=== PATIENT | male | born 1935 | race Caucasian/White ===

== ENCOUNTER 2017-02-23 12:54 | Inpatient (IN) | payer OTHER ==
--- NOTE | ~2017-02-23 | CN ---
Consultation Report [address] [address] NAME: ALEXIS HERNANDEZ : 34 STATUS : ADM IN PAT#: [id number] AGE: 81 ADM/REG DATE : 02/23/17 MR#: [id number] REPORT SERV DATE: 02/24/17 DICTATED BY: ANNIE MCKEON III DATE: 02/24/17 REPORT STATUS : Draft TRANSCRIBED BY: MODL DATE: 02/24/17 CONSULT DATE OF CONSULTATION: 02/24/2017 ATTENDING PHYSICIAN: Dr. Alexander. REASON FOR CONSULT: 1. Infection of left third toe. 2. Cellulitis of left foot and left lower extremity. 3. Recommendation regarding surgical management. HISTORY OF PRESENT ILLNESS: I am asked to see this 81-year-old male in the hospital today for the above reasons. The patient complains of swelling over his left third toe. He states he had an infection here about 7 or 8 weeks ago. He was treated with oral antibiotics with improvement. The toe was seen to be totally normal about 1 week ago. On this admission, the patient complains of swelling in the entire left great toe and left foot and left lower extremity. He presents to the emergency room and was found to have cellulitis of his left lower extremity associated with cellulitis of the left third toe. PAST HISTORY: 1. Hypertension. 2. Hyperlipidemia. 3. Diabetes mellitus. 4. Diabetic neuropathy of the lower extremities. 5. Coronary artery disease. 6. History of coronary artery bypass graft. 7. History of ischemic cardiomyopathy. 8. History of transient ischemic attack. 9. History of sick sinus syndrome. 10.Hyperlipidemia. 11.Sleep apnea. 12.Chronic kidney disease. 13.Chronic anemia. 14.Osteoarthritis. ALLERGIES: NONE. MEDICATIONS: Aspirin; Lipitor; Eliquis; folic acid; Lasix; lisinopril; metformin; and vitamins. SOCIAL HISTORY: The patient is . He lives with his daughter. He has no history of Consultation Report [address] [address] NAME: ALEXIS HERNANDEZ : 34 STATUS : ADM IN PAT#: [id number] AGE: 81 ADM/REG DATE : 02/23/17 MR#: [id number] REPORT SERV DATE: 02/24/17 DICTATED BY: ANNIE MCKEON III DATE: 02/24/17 REPORT STATUS : Draft TRANSCRIBED BY: MODL DATE: 02/24/17 tobacco or alcohol use currently. He is retired. FAMILY HISTORY: Positive for diabetes and peripheral vascular disease. REVIEW OF SYSTEMS: The patient's 14-point review of systems was otherwise unremarkable. PHYSICAL EXAMINATION: OBJECTIVE PHYSICAL EXAM: GENERAL: This is a large male, in no acute distress. He is alert and appropriate. VITAL SIGNS: Blood pressure 123/61, pulse 86, and temperature 95.8. HEENT: Unremarkable. NEUROLOGIC: Cranial nerves 2 through 12 are normal. LUNGS: Clear. CARDIAC: Normal. EXTREMITIES: The left lower extremity is remarkable for diffuse erythema of the left tibia extending to the left foot. There is moderate edema of the foot. The left 3rd toe is very swollen and erythematous with some dry eschar. There is no obvious open wounds and no fluctuance is noted. The patient has difficult to palpate posterior tibial and dorsal pedal pulses due to the edema of the foot and ankle but capillary refill is good in the toes bilaterally. LABORATORY DATA: White blood cell count is elevated at 13.6, hematocrit 31.4. Electrolytes are unremarkable except for creatinine of 1.49. Serum glucose is normal at 120. ASSESSMENT: 1. 81-year-old male with infection of the left 3rd toe, associated with cellulitis of the left foot and left lower extremity. 2. Diabetes mellitus. 3. Peripheral neuropathy of lower extremities related to diabetes. 4. Ischemic cardiomyopathy. 5. History of transient ischemic attack. 6. History of coronary artery disease. 7. Coronary artery bypass graft. 8. Sick sinus syndrome requiring Eliquis therapy. 9. Hypertension. 10.Sleep apnea. 11.Hyperlipidemia. 12.Chronic kidney disease. 13.Chronic anemia. PLAN: The patient is stable at this time with no evidence of need for acute surgical intervention. I agree with the parental antibiotics as ordered and imaging consistent with the MRI of the foot to rule out osteomyelitis. Consultation Report [address] [place] [address] NAME: ALEXIS HERNANDEZ : 34 STATUS : ADM IN [facility]#: [id number] AGE: 81 ADM/REG DATE : 02/23/17 MR#: [id number] REPORT SERV DATE: 02/24/17 DICTATED BY: ANNIE MCKEON III DATE: 02/24/17 REPORT STATUS : Draft TRANSCRIBED BY: MODChristian DATE: 02/24/17 It should be noted that the patient had noninvasive arterial studies of the lower extremities performed on 10/20/2016. This showed on the left side ankle-brachial index of 1.08. PLAN: The patient again has been started on parenteral antibiotics. MRI of the foot is pending. If the patient has evidence for osteomyelitis of the left 3rd toe, then possible consideration for amputation of the 3rd toe will be required. We will follow the patient with you. Thank you for this consult. RHJ/FROILAN Annie Mckeon III, M.D. / [id number] CC: Gina Preston MD
--- NOTE | ~2017-02-23 | DS ---
Discharge Summary [address] [place]. [address] NAME: ALEXIS HERNANDEZ : 34 STATUS : DIS IN PAT#: [id number] AGE: 81 ADM/REG DATE : 02/23/17 MR#: [id number] REPORT SERV DATE: 03/03/17 DICTATED BY: NICANOR ALEXANDER DATE: 03/02/17 REPORT STATUS : Draft TRANSCRIBED BY: MODL DATE: 03/02/17 ADMISSION DATE: 02/23/2017 DISCHARGE DATE: 03/02/2017 DISCHARGE DIAGNOSES: 1. Left third toe gangrene and osteomyelitis. 2. Diabetic foot infection. 3. Left lower extremity cellulitis, secondary to #1. 4. Sick sinus syndrome, with chronic atrial fibrillation, on Eliquis. 5. Ischemic cardiomyopathy, with chronic systolic congestive heart failure, ejection fraction of 40%. 6. Coronary artery disease, post coronary artery bypass grafting. 7. Hypertension. 8. Hyperlipoproteinemia. 9. Obstructive sleep apnea, controlled on CPAP. 10.Chronic kidney disease, 3. 11.Acute kidney injury, present on admission. 12.Chronic anemia. 13.Osteoarthritis, post bilateral total knee arthroplasty and right hip arthroplasty. 14.Dilated aortic root on echocardiography. 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 Pending at discharge: Quantitative immunoglobulins and free light chains. Outpatient followup needed. OPERATIONS AND PROCEDURES: On 02/28/2017, amputation of left third toe by Dr. Walters. HISTORY OF PRESENT ILLNESS: This is an 81-year-old white male taken in referral from Dr. Avila's office the day of admission, with a diabetic foot infection and left lower extremity cellulitis as described on admission history and physical examination. ADDITIONAL HISTORY: Per history and physical examination. PHYSICAL EXAMINATION: Per history and physical examination. ADMISSION LABORATORY: Per history and physical examination. HOSPITAL COURSE: He was admitted with a diabetic foot infection, with suspected left third toe osteomyelitis, and left lower extremity cellulitis all in the setting of the above- mentioned comorbidities. On admission, cultures of blood were obtained. He was started on Zosyn and vancomycin. Additional imaging was ordered and his home medications were continued. Plain left foot x-ray showed soft tissue infection of the distal left third toe. MRI of the left foot showed distal third phalanx osteomyelitis. There was a pocket of pus surrounding the destroyed bone consistent with tiny abscess. A chest x-ray showed mild pulmonary venous Discharge Summary [address] [place]. [address] NAME: ALEXIS HERNANDEZ : 34 STATUS : DIS IN PAT#: [id number] AGE: 81 ADM/REG DATE : 02/23/17 MR#: [id number] REPORT SERV DATE: 03/03/17 DICTATED BY: NICANOR ALEXANDER DATE: 03/02/17 REPORT STATUS : Draft TRANSCRIBED BY: FROILAN DATE: 03/02/17 congestion. Venous ultrasound imaging showed no evidence of left or right DVT. Segmental Dopplers have been done in September, which showed right and left ABIs within normal limits, and these were not repeated. Surgical consultation was obtained. He was seen by Dr. Sherwin Walters. Left third toe amputation was recommended. This was performed as described above. There were no perioperative complications. His antimicrobial therapy was continued postoperatively. By the time of discharge, his wound was clean. His cellulitic changes in his left foot and leg had largely resolved. Final pathology demonstrated gangrene of his left third toe, with osteomyelitis, with proximal viable bone. Blood cultures done on admission were no growth. His white blood cell count on admission was 13.9, and 8.5 at discharge. His hemoglobin was 11.2 on admission and 9.7, stable for two days at discharge. His blood sugar control in the hospital was generally excellent with blood sugars ranging in the low 100 to high 90s. He had issues with bradyarrhythmias in the past with Lopressor. He was started on low-dose carvedilol because of some ventricular response sustained over 100. He tolerated low-dose carvedilol well without documented bradycardia. On admission, his serum creatinine was 1.65. With the above-mentioned therapy, his creatinine fell to 1.28 on 03/01/2017, and 1.36 on 03/02/2017. He was thought to have an element of acute kidney injury. An anemia evaluation was done while hospitalized. This included an iron of 14, TIBC of 251, ferritin of 200, and B12 of 251. In addition, a TSH was 0.917. A serum protein electrophoresis was done which suggested a monoclonal protein. A serum immunofixation showed a biclonal IgM-kappa. Because of this, quantitative immunoglobulins were obtained, and are pending at the time of this discharge. Free light chains were obtained. This will require outpatient followup with consideration of bone marrow exam, skeletal survey, and Hematology evaluation. By 03/02/2017, it was felt that he had achieved a level of improvement and stability where he could be safely discharged home. He was seen by Physical Therapy. Home health care PT was recommended. He will have PT evaluation and treatment by home health care, in addition to medication reconciliation and home evaluation. Dr. Walters requested dressing changes daily with Xeroform gauze on his amputation site followed by a soft bulky dressing. He will need a rolling walker and a raised toilet seat which was provided at discharge. His office followup will be with Dr. Avila and Dr. Walters in two weeks or sooner if Discharge Summary [address] [address] NAME: ALEXIS HERNANDEZ : 34 STATUS : DIS IN PAT#: [id number] AGE: 81 ADM/REG DATE : 02/23/17 MR#: [id number] REPORT SERV DATE: 03/03/17 DICTATED BY: NICANOR ALEXANDER DATE: 03/02/17 REPORT STATUS : Draft TRANSCRIBED BY: FROILAN DATE: 03/02/17 needed. DISCHARGE MEDICATIONS: Pending outpatient followup: Eliquis 5 mg twice daily, aspirin 81 mg daily, Lipitor 20 mg daily, folic acid 1 mg daily, Coreg 3.125 mg twice daily, Lasix 10 mg daily, Prinivil 10 mg daily, multivitamin daily, Glucophage 500 mg twice daily, Coricidin twice daily, calcium, magnesium, and zinc twice daily, Tylenol 650 mg every 4 hours as needed for pain, Augmentin 875 twice daily after breakfast and supper for seven days. He was asked not to use nonsteroidal anti-inflammatory drugs with his chronic kidney disease. Discharge time greater than 30 minutes. DD/MODL Nicanor Alexander M.D. / [id number] CC: Gina Preston MD Richard Hunter Jennings III, M.D.
--- NOTE | ~2017-02-23 | HP ---
History And Physical [facility] [address] [place]. [address] NAME: ALEXIS HERNANDEZ : 34 STATUS : ADM IN PAT#: [id number] AGE: 81 ADM/REG DATE : 02/23/17 MR#: [id number] REPORT SERV DATE: 02/24/17 DICTATED BY: NICANOR ALEXANDER DATE: 02/23/17 REPORT STATUS : Draft TRANSCRIBED BY: MODChristian DATE: 02/23/17 DATE OF ADMISSION: 02/23/2017 CHIEF COMPLAINT: This is an 81-year-old white male, referred from Dr. Avila's office today with chief complaint of cellulitis. The history was obtained from Dr. Avila, the patient, and the patient's daughter who is present. The patient lives with his daughter. HISTORY OF PRESENT ILLNESS: The patient has been seeing Dr. Wiggins, a electroplater apprentice, for podiatric care. About seven weeks ago, he had apparently localized cellulitis of his left third toe that was treated with oral antimicrobial therapy with improvement. According to his daughter, the toe seemed to be normal last week. Yesterday, he was not his normal self. He was less interactive. She checked his vital signs and they were normal. His blood sugar was okay. He was shaky, imbalanced, and weak. He was noted to have a red left leg. He was taken to Dr. Avila today, where cellulitis was diagnosed and he was referred for admission. He has not had any itching or other rash. No headache. No change in vision. No earache, sore throat, nasal drainage, or cough. He has dyspnea on exertion, less than 20 feet. No chest pain. He has not had a change in his p.o. intake. Some trouble chewing because he is edentulous. No difficulty swallowing. No heartburn, nausea, vomiting, abdominal pain, constipation, diarrhea, or rectal bleeding. He has had no dysuria or hematuria. No focal joint pain. He has no history of cancer, thyroid disease, COPD, emphysema, bronchiectasis, or pulmonary fibrosis. He has no history of Parkinson disease. No previous history of BPH, voiding dysfunction, or renal stones. He does not have a systemic rheumatic disease and is not on any immunosuppressive medication. His other medical history does include: 1. Diabetes. 2. Neuropathy. 3. Ischemic cardiomyopathy with EF of 40% by echo in June 2016. 4. Coronary artery disease, post CABG, 1999. 5. History of TIAs. 6. Cognitive impairment, question vascular. 7. Sick sinus syndrome, with chronic atrial fibrillation with previous ablation. Currently on Eliquis. 8. Hypertension. 9. Hyperlipidemia. 10.Sleep apnea, on CPAP. 11.Chronic kidney disease 3. 12.Chronic anemia. 13.Osteoarthritis, post bilateral total knee arthroplasty and right hip arthroplasty. History And Physical [address] [address] NAME: ALEXIS HERNANDEZ : 34 STATUS : ADM IN [facility]#: [id number] AGE: 81 ADM/REG DATE : 02/23/17 MR#: [id number] REPORT SERV DATE: 02/24/17 DICTATED BY: NICANOR ALEXANDER DATE: 02/23/17 REPORT STATUS : Draft TRANSCRIBED BY: FROILAN DATE: 02/23/17 14.Dilated aortic root by last echocardiography in June of 2016. ALLERGIES OR INTOLERANCE: None. HOME MEDICATIONS: Aspirin 81 mg daily, Lipitor 20 mg daily, Eliquis 5 mg twice daily, folic acid 1 tablet daily, Lasix 20 mg daily, lisinopril 10 mg daily, metformin 500 mg twice daily, multivitamin daily, Coricidin as needed. SOCIAL HISTORY: . Lives with daughter as noted. Has a second daughter. Has been living with his current daughter for four years because of some forgetfulness. He does not require any assistive devices. Does use alcohol, but not daily. No tobacco use in 40 to 50 years. Retired conventional machinist and salesman. No daily weights. Tries to follow a diabetic diet. FAMILY HISTORY: Father with diabetes, peripheral vascular disease, age 84. Mother at 97. Five siblings. A brother with leukemia. A brother in an accident. No diabetes. PAST SURGICAL HISTORY: See above. REVIEW OF SYSTEMS: Complete, done with patient and daughter in room 6132 and negative except as noted above. PHYSICAL EXAMINATION: VITAL SIGNS: O2 saturation 97% on 2 L, blood pressure 116/67, temperature 96.5, respirations 20, pulse 115, and weight 131.995 kg. GENERAL: This is a stated age appearing white male, who is alert, conversant, and appropriate. SKIN: There is erythema over the anterior and medial and lateral right lower extremity below the knee extending to the foot. Left third toe is erythematous and edematous with some exudate. No other skin changes are noted. No petechiae or ecchymoses. NODES: No palpable axillary, cervical, or inguinal. HEENT: Atraumatic with symmetric facies. Lids, sclerae, and conjunctivae negative. No xanthelasma, scleral icterus, or conjunctival petechiae or injection. Pupils are equal, round, and reactive to light. Extraocular movements intact. No nystagmus. Hearing intact. External ears negative. Ear canals ceruminous, cannot see TMs. Nose negative. Anterior nares clear. Lips, gums, mucosa, soft palate, posterior pharynx, tongue negative. He has an upper plate. NECK: No visible JVD. No palpable mass, goiter, or tenderness. Trachea midline, nontender. LUNGS: Clear to auscultation. Normal respiratory effort. HEART: Irregular rhythm. No audible murmur, gallop, rub, or click. Pulses 1+ radial. Cannot feel femoral, popliteal, dorsalis pedis, or posterior tibial. ABDOMEN: Obese, mild tenderness in the left lower quadrant. Size limits the exam. Cannot feel liver, spleen, kidneys, or any masses or organs. EXTREMITIES: Upper extremities, no active synovitis, clubbing, or edema. Lower extremities, see skin above, otherwise negative except previous bilateral knee replacements. NEUROLOGIC: Mental status oriented. Cranial nerves II through XII normal. Deep tendon reflexes absent lower extremities, 2+ brachioradialis left, no brachioradialis right. History And Physical [address] [address] NAME: ALEXIS HERNANDEZ : 34 STATUS : ADM IN PAT#: [id number] AGE: 81 ADM/REG DATE : 02/23/17 MR#: [id number] REPORT SERV DATE: 02/24/17 DICTATED BY: NICANOR ALEXANDER DATE: 02/23/17 REPORT STATUS : Draft TRANSCRIBED BY: FROILAN DATE: 02/23/17 Sensory, diminished temperature, lower extremities. Strength, symmetric upper and lower extremities, proximal and distal. PSYCHIATRIC: Appropriate mood and affect. DATA: Sodium 137, potassium 4.5, chloride 103, CO2 of 26, BUN 28, creatinine 1.65, glucose 125, calcium 9.3. Total protein 7, albumin 3.1, globulin is 3.9, total bilirubin is 1, alkaline phosphatase 88, ALT 13, AST 10. Iron 14, TIBC 251, ferritin 200. B12 of 251. TSH 0.917. C-reactive protein 158. BNP 212.5. White count 13.9, hemoglobin 11.2, platelets 207,000. Blood sugar 121. Urinalysis is pending. Chest x-ray: Increased heart size. No infiltrate or edema seen. EKG is pending. ASSESSMENT: This is an 81-year-old white male with: 1. Diabetic foot infection. Left third toe osteomyelitis, suspected question. Also forefoot infection. 2. Left lower extremity cellulitis. 3. Diabetes. 4. Neuropathy. 5. Ischemic cardiomyopathy with ejection fraction of 40% by echo in 06/2016. 6. Coronary artery disease, post coronary artery bypass graft in 1999. 7. Transient ischemic attack history. 8. Cognitive impairment. Question vascular. 9. Sick sinus syndrome, with chronic atrial fibrillation post ablation, on Eliquis. 10.Hypertension. 11.Hyperlipidemia. 12.Sleep apnea, on CPAP. 13.Chronic kidney disease 3. 14.Chronic anemia. 15.Osteoarthritis with bilateral total knee arthroplasties and right hip arthroplasty. 16.Dilated aortic root on 06/2016 echo. PLAN: Cultures of blood and urine. Begin Zosyn and vancomycin. Get MRI, left foot. Surgical/Wound consultation. Continue home medications. Insulin correction scale if needed. Medications for pain and nausea if needed. Further diagnostic and therapeutic considerations pending above. DD/MODL Nicanor Alexander M.D. / [id number] History And Physical [address] [address] NAME: ALEXIS HERNANDEZ : 34 STATUS : ADM IN [facility]#: [id number] AGE: 81 ADM/REG DATE : 02/23/17 MR#: [id number] REPORT SERV DATE: 02/24/17 DICTATED BY: NICANOR ALEXANDER DATE: 02/23/17 REPORT STATUS : Draft TRANSCRIBED BY: FROILAN DATE: 02/23/17 CC: Gina Preston MD
--- NOTE | ~2017-02-23 | OP ---
Record Of Operation [facility] [address] [place]. [address] NAME: ALEXIS HERNANDEZ : 34 STATUS : ADM IN PAT#: [id number] AGE: 81 ADM/REG DATE : 02/23/17 MR#: [id number] REPORT SERV DATE: 03/01/17 DICTATED BY: ANNIE MCKEON III DATE: 03/01/17 REPORT STATUS : Draft TRANSCRIBED BY: MODL DATE: 03/01/17 DATE OF PROCEDURE: 02/28/2017 PREOPERATIVE DIAGNOSES: Osteomyelitis of left third toe associated with abscess in the left third toe, cellulitis of the foot, diabetes mellitus, and diabetic neuropathy. POSTOPERATIVE DIAGNOSES: Osteomyelitis of left third toe associated with abscess in the left third toe, cellulitis of the foot, diabetes mellitus, and diabetic neuropathy. PROCEDURE: Amputation of the left third toe. SURGEON: Annie Mckeon M.D. ANESTHESIA: General with intubation. COMPLICATIONS: None. ESTIMATED BLOOD LOSS: Less than 5 mL. SPECIMENS: Left third toe. DRAINS: None. LAP AND SPONGE COUNT: Correct x3. BRIEF HISTORY: This 81-year-old male, with history of diabetes and diabetic neuropathy, was admitted with an infection of the left third toe, and severe cellulitis of the left foot and left lower extremity. His workup showed evidence for osteomyelitis and a probable abscess of the left third toe. This was the second time this infection had occurred. It was felt that the cellulitis of the entire lower extremity originated from this left third toe infection and osteomyelitis. It was felt that amputation of the left third toe therefore was indicated. This procedure, the risks, benefits, and alternatives, including but not limited to the risk for bleeding, infection, wound failure, wound dehiscence, possible need for further surgery, continued infection in the extremity requiring further surgery, and unforeseen complications including deep venous thrombosis, pulmonary embolus, myocardial infarction, stroke, and pneumonia and were fully and completely explained to the patient and the family prior to the surgery. Their questions were answered. They understood the risks and agreed to the surgery as planned. DESCRIPTION OF PROCEDURE: After being properly identified and after discussing the risks and benefits of the surgery with the patient and family again in the preoperative area, he was taken to the operating room, placed in the supine position on the operating room table. General anesthesia was administered. He was intubated without difficulty. The left foot was prepped and draped sterilely in the usual fashion. After an appropriate "time-out" per [employer] standards, an incision was made around the proximal aspect of the left third toe, proximal to the area of infection and skin necrosis, and where there was viable skin. The Record Of Operation [facility] [address] [place]. [address] NAME: ALEXIS HERNANDEZ : 34 STATUS : ADM IN PAT#: [id number] AGE: 81 ADM/REG DATE : 02/23/17 MR#: [id number] REPORT SERV DATE: 03/01/17 DICTATED BY: ANNIE MCKEON III DATE: 03/01/17 REPORT STATUS : Draft TRANSCRIBED BY: FROILAN DATE: 03/01/17 incision was continued through the subcutaneous tissue. Hemostasis was controlled with the cautery. The incision was continued through the tendons and vessels. The incision was continued down to the bone. An elevator was used to elevate the periosteum off the bone to the metatarsophalangeal joint. The bone was amputated at this joint using a bone cutter. The entire toe was thus removed. The skin edges were freshened. The wound was irrigated copiously with saline. There was extensive edema in the area, and the erythema extended to the skin edges. We resected back to viable skin. Hemostasis was assured. The skin edges were then reapproximated with interrupted 3-0 Prolene sutures. Dressings were applied, and the orthopedic shoe was applied. Anesthesia was reversed, and the patient was taken to the recovery room in stable condition. He tolerated the procedure well. His family was informed the results of the surgery. The patient will remain in the hospital for postoperative care. DEVIN/FROILAN Annie Mckeon III, M.D. / [id number] CC: Gina Preston MD
--- NOTE | ~2017-02-23 | CN ---
Consultation Report [facility] [address] [place]. [address] NAME: ALEXIS MCMILLAN : 33 STATUS : ADM IN [facility]#: [id number] AGE: 81 ADM/REG DATE : 02/23/17 MR#: [id number] REPORT SERV DATE: 02/25/17 DICTATED BY: ANNIE MCKEON III DATE: 02/25/17 REPORT STATUS : Draft TRANSCRIBED BY: MODChristian DATE: 02/25/17 DATE OF CONSULTATION: 02/25/2017 ADDENDUM: Mr. Mcmillan's cellulitis of the left lower extremity is improving. His left toe remains very swollen with an eschar and fluctuance consistent with an abscess distally. 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 Based on this, I feel amputation of the left 3rd toe is indicated. The patient is currently on Eliquis, and we will stop this and plan the surgery for Tuesday which would be amputation of the left 3rd toe at the base of the toe. This procedure, the risks, benefits, alternatives, including not limited to the risk for bleeding, infection, wound failure, wound dehiscence requiring prolonged wound care or even further amputation and unforeseen complications including deep venous thrombosis, pulmonary embolus, myocardial infarction, stroke, pneumonia, and , have been explained the patient prior to surgery. The possibility of nonhealing wound requiring further surgery or prolonged wound care has been explained. The patient's questions have been answered. He understands the risks and agrees to surgery as planned. DEVIN/FROILAN Annie Mckeon III, M.D. / [id number] CC: Gina Preston MD
[~2017-02-23 12:54] MED LIST: ALKA-SELTZER PO; ASAB PO; FISH-EPA1000 MG PO; FOLIC PO; GLUCPH PO; JANTOVEN3 MG PO; JANTOVEN4 MG PO; L20 PO; LIPITOR10 PO; MCZ25 PO; PLAVIX PO; TOPXL100 PO; TOPXL25 PO; VIT B 1; VIT B 12; VITAMIN B-121000 MC1 PO; VITAMIN B-121000 MC1 SL; VITAMIN B-1500 MG PO
[2017-02-23 17:14] LABS: BASOPHILS 0.2 %; BASOPHILS ABSOLUTE 0.03 10/3/uL (0.0-0.16); EOSINOPHILS 0 %; HEMOGLOBIN 11.2 g/dL (13.6-17.8); IMMATURE GRANULOCYTES 0.3 %; IMMATURE GRANULOCYTES ABSOLUTE 0.04 10/3/uL (0.0-0.11); LYMPHOCYTES 8.1 %; LYMPHOCYTES ABSOLUTE 1.13 10/3/uL (0.67-4.30); MEAN CORPUS HGB CONC 33.2 g/dL (32.0-36.0); MEAN CORPUSCULAR HEMOGLOB 31.5 pg (26.0-34.0); MEAN CORPUSCULAR VOLUME 94.7 fL (80-100); MONOCYTES 11.4 %; MONOCYTES ABSOLUTE 1.58 10/3/uL (0.21-1.20); NEUTROPHILS ABSOLUTE 11.14 10/3/uL (2.02-8.40); RED CELL COUNT 3.56 10/6/uL (4.7-6.1); WHITE BLOOD CELLS 13.9 10/3/uL (4.5-10.5)
[2017-02-23 17:15] LABS: HEMATOCRIT 33.7 % (40.0-51.0); MANUAL DIFF NO %; PLATELET COUNT 207 10/3/uL (150-400)
[2017-02-23 17:47] LABS: T PROTEIN (ELECT)(NOT OR 6.4 G/DL (6.0-8.5)
[2017-02-23 17:54] LABS: ALBUMIN 3.1 G/DL (3.5-5.0); BUN (BLOOD UREA NITROGEN) 28 MG/DL (6-23); CALCIUM, SERUM 9.3 MG/DL (8.5-10.4); CHLORIDE, SERUM 103 MMOL/L (96-112); CO2 (CARBON DIOXIDE) 26 MMOL/L (24-34); CREATININE 1.65 MG/DL (0.70-1.30); FERRITIN 200 NG/ML (26-388); GFR AFRICAN AMERICAN 44 ML/MIN (>=60); GFR NON AFRICAN AMERICAN 38 ML/MIN (>=60); GLUCOSE, SERUM 125 MG/DL (60-99); IRON BINDING CAPACITY 251 MCG/DL (250-450); IRON, SERUM 14 MCG/DL (35-150); POTASSIUM, SERUM 4.5 MMOL/L (3.5-5.3); SGOT(AST) 10 U/L (5-40); SGPT(ALT) 13 U/L (5-65); SODIUM, SERUM 137 MMOL/L (135-148); ULTRASENSITIVE TSH 0.917 MCIU/ML (0.358-3.740)
[2017-02-23 17:57] LABS: A/G RATIO 0.8 (0.7-1.9); ALKALINE PHOSPHATASE 88 U/L (45-117); GLOBULIN 3.9 G/DL (2.5-4.1)
[2017-02-23 18:18] LABS: SED RATE 69 MM/HR (0-15)
[2017-02-23] MEDS ORDERED: LIPITOR20 PO (18:40)
[2017-02-23] MEDS ORDERED: HALF81 PO (18:40)
[2017-02-23] MEDS ORDERED: L20 PO (18:41)
[2017-02-23] MEDS ORDERED: ELIQUIS 5 MG TAB5 MG PO (18:41)
[2017-02-23] MEDS ORDERED: FOLIC PO (18:41)
[2017-02-23] MEDS ORDERED: PRIN10 PO (18:42)
[2017-02-23] MEDS ORDERED: GLUCPH PO (18:42)
[2017-02-23] MEDS ORDERED: MULTIVITAMI1 PO (18:43)
[2017-02-23] MEDS ORDERED: CORICIDI3 PO (18:44)
[2017-02-23] MEDS ORDERED: ADVIL PO (18:45)
[2017-02-23] MEDS ORDERED: CALCIUM PO (18:45)
[2017-02-23] MEDS ORDERED: ZINC PO (18:45)
[2017-02-23] MEDS ORDERED: MAGNES PO (18:45)
[2017-02-24 05:52] LABS: BUN (BLOOD UREA NITROGEN) 28 MG/DL (6-23); CALCIUM, SERUM 9.1 MG/DL (8.5-10.4); CHLORIDE, SERUM 103 MMOL/L (96-112); CO2 (CARBON DIOXIDE) 24 MMOL/L (24-34); CREATININE 1.49 MG/DL (0.70-1.30); GFR AFRICAN AMERICAN 50 ML/MIN (>=60); GFR NON AFRICAN AMERICAN 43 ML/MIN (>=60); GLUCOSE, SERUM 120 MG/DL (60-99); POTASSIUM, SERUM 4.6 MMOL/L (3.5-5.3); SODIUM, SERUM 136 MMOL/L (135-148)
[2017-02-24 05:54] LABS: BASOPHILS 0.2 %; BASOPHILS ABSOLUTE 0.03 10/3/uL (0.0-0.16); EOSINOPHILS 0.5 %; EOSINOPHILS ABSOLUTE 0.07 10/3/uL (0.0-0.53); HEMATOCRIT 31.4 % (40.0-51.0); HEMOGLOBIN 10.6 g/dL (13.6-17.8); IMMATURE GRANULOCYTES 0.2 %; IMMATURE GRANULOCYTES ABSOLUTE 0.03 10/3/uL (0.0-0.11); LYMPHOCYTES 9.3 %; LYMPHOCYTES ABSOLUTE 1.26 10/3/uL (0.67-4.30); MANUAL DIFF NO %; MEAN CORPUS HGB CONC 33.8 g/dL (32.0-36.0); MEAN CORPUSCULAR HEMOGLOB 31.3 pg (26.0-34.0); MEAN CORPUSCULAR VOLUME 92.6 fL (80-100); MEAN PLATELET VOLUME 8.8 fL (9.2-13.0); MONOCYTES 8.1 %; NEUTROPHILS 81.7 %; NEUTROPHILS ABSOLUTE 11.11 10/3/uL (2.02-8.40); PLATELET COUNT 176 10/3/uL (150-400); RBC DISTRIBUTION WIDTH 15.1 % (12.0-16.0); RED CELL COUNT 3.39 10/6/uL (4.7-6.1); WHITE BLOOD CELLS 13.6 10/3/uL (4.5-10.5)
[2017-02-24 12:12] LABS: A/G 1.19 RATIO (0.9-2.10); ALB RELATIVE % 54.4 % (60.0-89.0); ALBUMIN (ELECTRO) 3.48 GM/DL (3.2-5.5); ALPHA 1 RELAT % (NOT ORD) 4.7 % (1.0-4.0); ALPHA 2 (ELECTRO) 0.84 GM/DL (0.5-1.10); ALPHA 2 RELAT % 13.1 % (4.5-26.0); BETA GLOBULIN (SPE) 0.68 GM/DL (0.60-1.30); BETA RELATIVE % 10.6 % (9.0-22.0); GAMMA RELAT % 17.2 % (6.0-22.0)
[2017-02-25 05:42] LABS: BASOPHILS 0.2 %; BASOPHILS ABSOLUTE 0.02 10/3/uL (0.0-0.16); EOSINOPHILS 1.2 %; EOSINOPHILS ABSOLUTE 0.13 10/3/uL (0.0-0.53); HEMATOCRIT 30.4 % (40.0-51.0); HEMOGLOBIN 10.4 g/dL (13.6-17.8); IMMATURE GRANULOCYTES 0.2 %; IMMATURE GRANULOCYTES ABSOLUTE 0.02 10/3/uL (0.0-0.11); LYMPHOCYTES 7.7 %; LYMPHOCYTES ABSOLUTE 0.84 10/3/uL (0.67-4.30); MEAN CORPUS HGB CONC 34.2 g/dL (32.0-36.0); MEAN CORPUSCULAR HEMOGLOB 31.3 pg (26.0-34.0); MEAN CORPUSCULAR VOLUME 91.6 fL (80-100); MEAN PLATELET VOLUME 8.7 fL (9.2-13.0); MONOCYTES 12.2 %; MONOCYTES ABSOLUTE 1.34 10/3/uL (0.21-1.20); NEUTROPHILS 78.5 %; PLATELET COUNT 177 10/3/uL (150-400); RBC DISTRIBUTION WIDTH 14.9 % (12.0-16.0); RED CELL COUNT 3.32 10/6/uL (4.7-6.1)
[2017-02-25 05:46] LABS: MANUAL DIFF NO %
[2017-02-25 05:55] LABS: BUN (BLOOD UREA NITROGEN) 25 MG/DL (6-23); CALCIUM, SERUM 8.6 MG/DL (8.5-10.4); CHLORIDE, SERUM 104 MMOL/L (96-112); CO2 (CARBON DIOXIDE) 22 MMOL/L (24-34); CREATININE 1.41 MG/DL (0.70-1.30); GFR AFRICAN AMERICAN 53 ML/MIN (>=60); GFR NON AFRICAN AMERICAN 46 ML/MIN (>=60); GLUCOSE, SERUM 115 MG/DL (60-99); POTASSIUM, SERUM 4.4 MMOL/L (3.5-5.3); SODIUM, SERUM 136 MMOL/L (135-148)
[2017-02-26 05:41] LABS: BASOPHILS 0.4 %; BASOPHILS ABSOLUTE 0.04 10/3/uL (0.0-0.16); EOSINOPHILS 3.4 %; EOSINOPHILS ABSOLUTE 0.33 10/3/uL (0.0-0.53); HEMATOCRIT 31.2 % (40.0-51.0); HEMOGLOBIN 10.6 g/dL (13.6-17.8); IMMATURE GRANULOCYTES 0.5 %; IMMATURE GRANULOCYTES ABSOLUTE 0.05 10/3/uL (0.0-0.11); LYMPHOCYTES 8.7 %; LYMPHOCYTES ABSOLUTE 0.84 10/3/uL (0.67-4.30); MEAN CORPUSCULAR HEMOGLOB 31.5 pg (26.0-34.0); MEAN CORPUSCULAR VOLUME 92.6 fL (80-100); MEAN PLATELET VOLUME 8.9 fL (9.2-13.0); MONOCYTES 11.4 %; NEUTROPHILS 75.6 %; NEUTROPHILS ABSOLUTE 7.29 10/3/uL (2.02-8.40); PLATELET COUNT 197 10/3/uL (150-400); RBC DISTRIBUTION WIDTH 14.6 % (12.0-16.0); RED CELL COUNT 3.37 10/6/uL (4.7-6.1); WHITE BLOOD CELLS 9.7 10/3/uL (4.5-10.5)
[2017-02-26 05:42] LABS: MANUAL DIFF NO %
[2017-02-26 05:49] LABS: BUN (BLOOD UREA NITROGEN) 28 MG/DL (6-23); CALCIUM, SERUM 8.8 MG/DL (8.5-10.4); CHLORIDE, SERUM 104 MMOL/L (96-112); CO2 (CARBON DIOXIDE) 22 MMOL/L (24-34); CREATININE 1.39 MG/DL (0.70-1.30); GFR AFRICAN AMERICAN 54 ML/MIN (>=60); GFR NON AFRICAN AMERICAN 47 ML/MIN (>=60); GLUCOSE, SERUM 111 MG/DL (60-99); POTASSIUM, SERUM 4.3 MMOL/L (3.5-5.3); SODIUM, SERUM 135 MMOL/L (135-148)
[2017-02-28 06:04] LABS: BASOPHILS 0.5 %; BASOPHILS ABSOLUTE 0.05 10/3/uL (0.0-0.16); EOSINOPHILS 3.3 %; EOSINOPHILS ABSOLUTE 0.34 10/3/uL (0.0-0.53); HEMATOCRIT 30.9 % (40.0-51.0); HEMOGLOBIN 10.3 g/dL (13.6-17.8); IMMATURE GRANULOCYTES 0.9 %; IMMATURE GRANULOCYTES ABSOLUTE 0.09 10/3/uL (0.0-0.11); LYMPHOCYTES 9.7 %; LYMPHOCYTES ABSOLUTE 0.99 10/3/uL (0.67-4.30); MEAN CORPUS HGB CONC 33.3 g/dL (32.0-36.0); MEAN CORPUSCULAR HEMOGLOB 30.9 pg (26.0-34.0); MEAN CORPUSCULAR VOLUME 92.8 fL (80-100); MEAN PLATELET VOLUME 8.8 fL (9.2-13.0); MONOCYTES 8.6 %; MONOCYTES ABSOLUTE 0.88 10/3/uL (0.21-1.20); NEUTROPHILS ABSOLUTE 7.87 10/3/uL (2.02-8.40); PLATELET COUNT 215 10/3/uL (150-400); RBC DISTRIBUTION WIDTH 14.9 % (12.0-16.0); RED CELL COUNT 3.33 10/6/uL (4.7-6.1); WHITE BLOOD CELLS 10.2 10/3/uL (4.5-10.5)
[2017-02-28 06:07] LABS: MANUAL DIFF NO %
[2017-02-28 06:22] LABS: BUN (BLOOD UREA NITROGEN) 20 MG/DL (6-23); CALCIUM, SERUM 9.2 MG/DL (8.5-10.4); CHLORIDE, SERUM 106 MMOL/L (96-112); CO2 (CARBON DIOXIDE) 23 MMOL/L (24-34); CREATININE 1.34 MG/DL (0.70-1.30); GFR AFRICAN AMERICAN 57 ML/MIN (>=60); GFR NON AFRICAN AMERICAN 49 ML/MIN (>=60); GLUCOSE, SERUM 115 MG/DL (60-99); POTASSIUM, SERUM 4.7 MMOL/L (3.5-5.3); SODIUM, SERUM 137 MMOL/L (135-148)
[2017-03-01 06:52] LABS: BASOPHILS 0.5 %; BASOPHILS ABSOLUTE 0.04 10/3/uL (0.0-0.16); EOSINOPHILS 3.3 %; EOSINOPHILS ABSOLUTE 0.28 10/3/uL (0.0-0.53); HEMATOCRIT 29.4 % (40.0-51.0); HEMOGLOBIN 9.7 g/dL (13.6-17.8); IMMATURE GRANULOCYTES 1.2 %; LYMPHOCYTES 11.4 %; LYMPHOCYTES ABSOLUTE 0.95 10/3/uL (0.67-4.30); MEAN CORPUSCULAR HEMOGLOB 31.2 pg (26.0-34.0); MEAN CORPUSCULAR VOLUME 94.5 fL (80-100); MEAN PLATELET VOLUME 8.7 fL (9.2-13.0); MONOCYTES 7.3 %; MONOCYTES ABSOLUTE 0.61 10/3/uL (0.21-1.20); NEUTROPHILS 76.3 %; NEUTROPHILS ABSOLUTE 6.39 10/3/uL (2.02-8.40); PLATELET COUNT 225 10/3/uL (150-400); RBC DISTRIBUTION WIDTH 15.1 % (12.0-16.0); RED CELL COUNT 3.11 10/6/uL (4.7-6.1); WHITE BLOOD CELLS 8.4 10/3/uL (4.5-10.5)
[2017-03-01 07:03] LABS: BUN (BLOOD UREA NITROGEN) 19 MG/DL (6-23); CALCIUM, SERUM 8.9 MG/DL (8.5-10.4); CHLORIDE, SERUM 107 MMOL/L (96-112); CO2 (CARBON DIOXIDE) 26 MMOL/L (24-34); CREATININE 1.28 MG/DL (0.70-1.30); GFR AFRICAN AMERICAN 60 ML/MIN (>=60); GFR NON AFRICAN AMERICAN 52 ML/MIN (>=60); GLUCOSE, SERUM 122 MG/DL (60-99); POTASSIUM, SERUM 4.5 MMOL/L (3.5-5.3); SODIUM, SERUM 139 MMOL/L (135-148)
[2017-03-01 07:05] LABS: MANUAL DIFF NO %
[2017-03-02 06:04] LABS: BUN (BLOOD UREA NITROGEN) 16 MG/DL (6-23); CALCIUM, SERUM 9.1 MG/DL (8.5-10.4); CHLORIDE, SERUM 106 MMOL/L (96-112); CO2 (CARBON DIOXIDE) 23 MMOL/L (24-34); CREATININE 1.36 MG/DL (0.70-1.30); GFR AFRICAN AMERICAN 56 ML/MIN (>=60); GFR NON AFRICAN AMERICAN 48 ML/MIN (>=60); GLUCOSE, SERUM 123 MG/DL (60-99); POTASSIUM, SERUM 4.7 MMOL/L (3.5-5.3); SODIUM, SERUM 138 MMOL/L (135-148)
[2017-03-02 06:49] LABS: BASOPHILS 0.4 %; BASOPHILS ABSOLUTE 0.03 10/3/uL (0.0-0.16); EOSINOPHILS 3.4 %; EOSINOPHILS ABSOLUTE 0.29 10/3/uL (0.0-0.53); HEMATOCRIT 29.6 % (40.0-51.0); HEMOGLOBIN 9.7 g/dL (13.6-17.8); IMMATURE GRANULOCYTES 0.9 %; IMMATURE GRANULOCYTES ABSOLUTE 0.08 10/3/uL (0.0-0.11); LYMPHOCYTES 12.9 %; MEAN CORPUS HGB CONC 32.8 g/dL (32.0-36.0); MEAN CORPUSCULAR HEMOGLOB 30.7 pg (26.0-34.0); MEAN CORPUSCULAR VOLUME 93.7 fL (80-100); MEAN PLATELET VOLUME 9.1 fL (9.2-13.0); MONOCYTES 7.2 %; MONOCYTES ABSOLUTE 0.61 10/3/uL (0.21-1.20); NEUTROPHILS 75.2 %; NEUTROPHILS ABSOLUTE 6.39 10/3/uL (2.02-8.40); PLATELET COUNT 249 10/3/uL (150-400); RBC DISTRIBUTION WIDTH 15.2 % (12.0-16.0); RED CELL COUNT 3.16 10/6/uL (4.7-6.1); WHITE BLOOD CELLS 8.5 10/3/uL (4.5-10.5)
[2017-03-02 06:52] LABS: MANUAL DIFF NO %
[2017-03-02 14:07] LABS: IMMUNOGLOBULIN A 200 MG/DL (70-420); IMMUNOGLOBULIN G 317 MG/DL (673-1464); IMMUNOGLOBULIN M 78 MG/DL (30-270)
[2017-03-02] MEDS ORDERED: COREG3 PO (16:07)
[2017-03-02] MEDS ORDERED: AUG875 PO (16:09)
[2017-03-02] MEDS ORDERED: T PO (16:15)
[2017-03-04 19:33] LABS: KAPPA FLC 12.4 mg/dL (0.33-1.94); KAPPA LAMBDA FLC RATIO 1.34 (0.26-1.65); LAMBDA FLC 9.23 mg/dL (0.57-2.63)
[2017-03-04 22:02] LABS: IMMUNOGLOBULIN E <2.0 kU/L (0.0-158.0)
[2017-03-05 13:28] LABS: IMMUNOGLOBULIN D 2.8 mg/dL (<15.4)
== END 2017-03-02 17:30 | disposition home health service (06) | DRG 617 ==
LOC: 6NO 12:54
PROVIDERS: Internal Medicine; Surgery
PROC: 0Y6U0Z0 Detachment at Left 3rd Toe, Complete, Open Approach (ICD-10-PCS; principal; 2017-02-28 13:00)
DX: E11.69 Type 2 diabetes mellitus with other specified complication (principal); E11.52 Type 2 diabetes mellitus with diabetic peripheral angiopathy with gangrene; N17.9 Acute kidney failure, unspecified; E11.40 Type 2 diabetes mellitus with diabetic neuropathy, unspecified; L03.116 Cellulitis of left lower limb; I49.5 Sick sinus syndrome; D47.2 Monoclonal gammopathy; N18.3 Chronic kidney disease, stage 3 (moderate); I12.9 Hypertensive chronic kidney disease with stage 1 through stage 4 chronic kidney disease, or unspecified chronic kidney disease; E78.5 Hyperlipidemia, unspecified; I25.5 Ischemic cardiomyopathy; I25.10 Atherosclerotic heart disease of native coronary artery without angina pectoris; Z96.653 Presence of artificial knee joint, bilateral; Z96.641 Presence of right artificial hip joint; Z95.1 Presence of aortocoronary bypass graft; Z79.84 Long term (current) use of oral hypoglycemic drugs; G31.84 Mild cognitive impairment of uncertain or unknown etiology; Z86.73 Personal history of transient ischemic attack (TIA), and cerebral infarction without residual deficits
CPT/HCPCS: 71010; 73630-LT; 73718-LT; 80048; 80053; 80202; 82607; 82728; 82784; 82785; 82962; 83540; 83550; 83880; 83883; 83883-59; 84155; 84165; 84443; 85025; 85652; 86140; 86334; 87040; 88305; 93005; 93970; 97162-GP; A9270-GY; J0330; J2370; J2405; J2543; J3010; J3370